=== PATIENT | female | born 1955 | race Caucasian/White ===

== ENCOUNTER 2019-01-06 16:46 | Emergency (ER) | payer OTHER ==
[~2019-01-06] VITALS: Ht 175.3 cm; Wt 95.3 kg
[~2019-01-06 16:46] MED LIST: ALLEGRA ALLERG180 MG PO; AZOPT OPHTH1 %/10 M1 OPHTHALMIC; CO Q-10100 MG PO; COMBIGAN EYE DR10 ML INTRAOCULR; FOSAMAX 70 MG T70 MG PO; HYDROCODON-ACE1 EAC7 PO; LEXAPRO20 MG PO; LIPITOR10 MG PO; PATANOL5 ML OPHTHALMIC
[2019-01-06 18:10] VITALS: BP 164/90
== END 2019-01-06 18:10 | disposition home or self-care (01) ==
LOC: ER 16:46
DX: S60.212A Contusion of left wrist, initial encounter (principal); Z88.6 Allergy status to analgesic agent; Z88.2 Allergy status to sulfonamides; Z90.49 Acquired absence of other specified parts of digestive tract; Z88.8 Allergy status to other drugs, medicaments and biological substances; W18.39XA Other fall on same level, initial encounter; Y92.89 Other specified places as the place of occurrence of the external cause; Y93.89 Activity, other specified; Y99.0 Civilian activity done for income or pay